=== PATIENT | female | born 1960 | race Two or more races ===

== ENCOUNTER 2022-02-16 11:05 | Inpatient (IN) | payer MEDICAID ==
[~2022-02-16] VITALS: Ht 154.9 cm; Wt 54.0 kg
[2022-02-16] MEDS ORDERED: HYDROcodone-ACET 5/325MG TAB PO ONE (13:00)
[2022-02-16 13:16] LABS: Albumin 3.9 g/dL (3.4-5.0); Magnesium 2.4 mg/dL (1.6-2.6)
[2022-02-16 13:21] LABS: BUN/Creatinine Ratio 16.8; Bilirubin, Total 0.5 mg/dL (0.2-1.0); Total Protein 7.6 g/dL (6.4-8.2)
[2022-02-16 13:29] LABS: Basophils # (auto) 0 10 ^3/uL (0-0.2); Basophils % (auto) 0.6 % (0.0-2.0); Eosinophils # (auto) 0.1 10 ^3/uL (0-0.8); Eosinophils % (auto) 1.5 % (0.0-7.0); Hematocrit 32.2 % (36.0-46.0); Hemoglobin 11.5 g/dL (12.2-16.2); Lymphocytes # (auto) 1.6 10 ^3/uL (0.4-5.4); Lymphocytes % (auto) 22.2 % (10.0-50.0); Mean Corpuscular Hemoglobin 29.5 pg (28.0-32.0); Mean Corpuscular Hgb Conc. 35.6 g/dL (32.0-36.0); Mean Corpuscular Volume 82.9 fL (80.0-100.0); Monocytes # (auto) 0.5 10 ^3/uL (0-1.3); Monocytes % (auto) 7.4 % (0.0-12.0); Neutrophils % (auto) 68.3 % (37.0-80.0); Red Blood Cells 3.89 10^6/uL (4.0-5.20); Red Cell Distribution Width 13.3 % (11.8-14.3); White Blood Cell 7.4 10^3/uL (4.4-10.8)
[2022-02-16 13:37] LABS: Calcium 14.1 mg/dL (8.5-10.1); Potassium 2.9 mmol/L (3.5-5.1)
[2022-02-16] MEDS ORDERED: POTASSIUM CHL 20 Meq TABLET PO ONE (13:45)
[2022-02-16] MEDS ORDERED: ONDANSETRON HCL 4 MG/2 ML VIAL IV PRN (20:00)
[2022-02-16] MEDS ORDERED: HYDROcodone-ACET 5/325MG TAB PO PRN (20:00)
[2022-02-16] MEDS ORDERED: DOCUSATE SOD 100 MG CAP PO PRN (20:00)
[2022-02-16] MEDS ORDERED: DEXTROSE (50%) 50ML SYRG IV PRN (23:00)
[2022-02-17] VITALS (7 sets, daily range): BP systolic 125–153; BP diastolic 57–74
[2022-02-17] MEDS: SODIUM CHLORIDE 0.9% 1,000 ML IV SCH ×3 (06:00→16:00)
[2022-02-17] MEDS: ACCU-CHEK COMFORT CURVE STRIP VI SCH ×4 (07:00→22:45)
[2022-02-17] MEDS: InsuLIN REG 1unit/0.01ml Soln (100units/ml) SC SCH ×4 (07:00→22:45)
[2022-02-17 07:43] LABS: INR 0.97 (0.9-1.15); Partial Thromboplastin Time 23.5 sec (24.6-33.4)
[2022-02-17 07:47] LABS: BUN/Creatinine Ratio 21.2; Calcium 12.7 mg/dL (8.5-10.1); Potassium 3.1 mmol/L (3.5-5.1)
[2022-02-17 08:45] LABS: Basophils # (auto) 0 10 ^3/uL (0-0.2); Basophils % (auto) 0.7 % (0.0-2.0); Eosinophils # (auto) 0.1 10 ^3/uL (0-0.8); Eosinophils % (auto) 2.2 % (0.0-7.0); Hematocrit 28.7 % (36.0-46.0); Hemoglobin 10.4 g/dL (12.2-16.2); Lymphocytes # (auto) 1.2 10 ^3/uL (0.4-5.4); Lymphocytes % (auto) 19.4 % (10.0-50.0); Mean Corpuscular Hemoglobin 29.8 pg (28.0-32.0); Mean Corpuscular Hgb Conc. 36.4 g/dL (32.0-36.0); Mean Corpuscular Volume 81.8 fL (80.0-100.0); Monocytes # (auto) 0.5 10 ^3/uL (0-1.3); Neutrophils # (auto) 4.5 10 ^3/uL (1.6-8.6); Neutrophils % (auto) 69.7 % (37.0-80.0); Nucleated Red Blood Cells % 0.2 %; Red Cell Distribution Width 13.4 % (11.8-14.3); White Blood Cell 6.4 10^3/uL (4.4-10.8)
[2022-02-17] MEDS ORDERED: DOCUSATE SOD 100 MG CAP PO ONE (12:30)
[2022-02-17] MEDS ORDERED: POTASSIUM CHL 20 Meq TABLET PO ONE (12:30)
[2022-02-17] MEDS ORDERED: DEXTROSE (50%) 50ML SYRG IV PRN (12:30)
[2022-02-17] MEDS ORDERED: InsuLIN REG 1unit/0.01ml Soln (100units/ml) SC SCH (22:00)
[2022-02-17] MEDS: DOCUSATE SOD 100 MG CAP PO SCH (22:45)
[2022-02-18] MEDS: SODIUM CHLORIDE 0.9% 1,000 ML IV SCH ×3 (02:00→21:48)
[2022-02-18 04:36] LABS: BUN/Creatinine Ratio 21.1; Calcium 12.1 mg/dL (8.5-10.1); Potassium 3.3 mmol/L (3.5-5.1)
[2022-02-18 05:00] VITALS: BP 129/68
[2022-02-18] MEDS: ACCU-CHEK COMFORT CURVE STRIP VI SCH ×4 (06:27→21:49)
[2022-02-18] MEDS: InsuLIN REG 1unit/0.01ml Soln (100units/ml) SC SCH ×4 (06:28→21:48)
[2022-02-18 08:25] LABS: Basophils # (auto) 0 10 ^3/uL (0-0.2); Basophils % (auto) 0.9 % (0.0-2.0); Eosinophils # (auto) 0.2 10 ^3/uL (0-0.8); Eosinophils % (auto) 3.4 % (0.0-7.0); Hematocrit 26.6 % (36.0-46.0); Hemoglobin 9.7 g/dL (12.2-16.2); Lymphocytes # (auto) 1.3 10 ^3/uL (0.4-5.4); Lymphocytes % (auto) 25.4 % (10.0-50.0); Mean Corpuscular Hemoglobin 29.7 pg (28.0-32.0); Mean Corpuscular Hgb Conc. 36.3 g/dL (32.0-36.0); Mean Corpuscular Volume 81.9 fL (80.0-100.0); Monocytes # (auto) 0.4 10 ^3/uL (0-1.3); Monocytes % (auto) 8.4 % (0.0-12.0); Neutrophils # (auto) 3.2 10 ^3/uL (1.6-8.6); Neutrophils % (auto) 61.9 % (37.0-80.0); Red Blood Cells 3.25 10^6/uL (4.0-5.20); Red Cell Distribution Width 13.4 % (11.8-14.3); White Blood Cell 5.1 10^3/uL (4.4-10.8)
[2022-02-18 09:00] VITALS: BP 128/63
[2022-02-18] MEDS: DOCUSATE SOD 100 MG CAP PO SCH ×2 (10:19→21:48)
[2022-02-18] MEDS ORDERED: POTASSIUM CHL 20 Meq TABLET PO ONE (11:15)
[2022-02-18] MEDS: LACTULOSE 20Gm/30ML SOLN PO SCH ×2 (12:12→18:12)
[2022-02-18 13:00] VITALS: BP 145/61
[2022-02-18 16:28] VITALS: BP 139/68
[2022-02-18 19:08] LABS: Urine Bacteria NONE SEEN /hpf (None Seen); Urine Blood Negative /uL (Negative); Urine Hyaline Cast FEW /lpf (0 - 2); Urine Specific Gravity 1.008 (1.001-1.035); Urine WBC 10 /hpf (0 - 5)
[2022-02-18 22:00] VITALS: BP 123/51
[2022-02-19 05:00] VITALS: BP 110/53
[2022-02-19] MEDS: LACTULOSE 20Gm/30ML SOLN PO SCH ×5 (06:13→23:29)
[2022-02-19] MEDS: InsuLIN REG 1unit/0.01ml Soln (100units/ml) SC SCH ×4 (06:13→21:11)
[2022-02-19] MEDS: ACCU-CHEK COMFORT CURVE STRIP VI SCH ×4 (06:14→21:09)
[2022-02-19 06:35] LABS: Potassium 3.6 mmol/L (3.5-5.1)
[2022-02-19 06:47] LABS: Calcium 11.5 mg/dL (8.5-10.1)
[2022-02-19] MEDS: SODIUM CHLORIDE 0.9% 1,000 ML IV SCH ×2 (08:00→18:40)
[2022-02-19 09:00] VITALS: BP 144/65
[2022-02-19] MEDS: DOCUSATE SOD 100 MG CAP PO SCH ×2 (09:36→21:09)
[2022-02-19 13:00] VITALS: BP 154/92
[2022-02-19 17:00] VITALS: BP 146/65
[2022-02-19 22:00] VITALS: BP 136/39
[2022-02-20] MEDS: SODIUM CHLORIDE 0.9% 1,000 ML IV SCH ×3 (04:00→16:05)
[2022-02-20 05:00] VITALS: BP 141/66
[2022-02-20 05:37] LABS: Basophils # (auto) 0 10 ^3/uL (0-0.2); Basophils % (auto) 0.9 % (0.0-2.0); Eosinophils # (auto) 0.2 10 ^3/uL (0-0.8); Eosinophils % (auto) 4.1 % (0.0-7.0); Monocytes # (auto) 0.3 10 ^3/uL (0-1.3); Neutrophils # (auto) 3.2 10 ^3/uL (1.6-8.6)
[2022-02-20 05:40] LABS: Hematocrit 24.8 % (36.0-46.0); Hemoglobin 9.3 g/dL (12.2-16.2); Lymphocytes # (auto) 1.2 10 ^3/uL (0.4-5.4); Lymphocytes % (auto) 23.9 % (10.0-50.0); Mean Corpuscular Hemoglobin 30.7 pg (28.0-32.0); Mean Corpuscular Volume 81.9 fL (80.0-100.0); Monocytes % (auto) 6.3 % (0.0-12.0); Neutrophils % (auto) 64.8 % (37.0-80.0); Nucleated Red Blood Cells % 0.1 %; Red Blood Cells 3.03 10^6/uL (4.0-5.20); Red Cell Distribution Width 13.8 % (11.8-14.3)
[2022-02-20 05:44] LABS: Mean Corpuscular Hgb Conc. 37.5 g/dL (32.0-36.0)
[2022-02-20 05:48] LABS: BUN/Creatinine Ratio 8.7; Calcium 11.5 mg/dL (8.5-10.1)
[2022-02-20] MEDS: ACCU-CHEK COMFORT CURVE STRIP VI SCH ×4 (06:49→21:25)
[2022-02-20] MEDS: LACTULOSE 20Gm/30ML SOLN PO SCH ×3 (06:49→18:14)
[2022-02-20] MEDS: InsuLIN REG 1unit/0.01ml Soln (100units/ml) SC SCH ×4 (06:50→21:25)
[2022-02-20 08:19] VITALS: BP 151/78
[2022-02-20] MEDS: DOCUSATE SOD 100 MG CAP PO SCH ×2 (09:57→21:25)
[2022-02-20] MEDS ORDERED: POTASSIUM CHL 20MEQ/100ML 100 ML IV ONE ×3 (11:00→14:15)
[2022-02-20 12:24] VITALS: BP 130/57
[2022-02-20 16:58] VITALS: BP 129/78
[2022-02-20 22:00] VITALS: BP 147/61
[2022-02-21] MEDS: LACTULOSE 20Gm/30ML SOLN PO SCH ×5 (00:02→23:26)
[2022-02-21 05:00] VITALS: BP 115/57
[2022-02-21] MEDS: ACCU-CHEK COMFORT CURVE STRIP VI SCH ×4 (06:08→23:28)
[2022-02-21] MEDS: InsuLIN REG 1unit/0.01ml Soln (100units/ml) SC SCH ×4 (06:08→23:29)
[2022-02-21 06:09] LABS: BUN/Creatinine Ratio 5.8; Calcium 12.2 mg/dL (8.5-10.1); Potassium 3.3 mmol/L (3.5-5.1)
[2022-02-21 07:19] LABS: Basophils # (auto) 0 10 ^3/uL (0-0.2); Eosinophils # (auto) 0.2 10 ^3/uL (0-0.8); Eosinophils % (auto) 4.3 % (0.0-7.0); Hematocrit 25.4 % (36.0-46.0); Hemoglobin 9.3 g/dL (12.2-16.2); Lymphocytes # (auto) 1.2 10 ^3/uL (0.4-5.4); Mean Corpuscular Hemoglobin 30.1 pg (28.0-32.0); Mean Corpuscular Hgb Conc. 36.4 g/dL (32.0-36.0); Mean Corpuscular Volume 82.5 fL (80.0-100.0); Monocytes # (auto) 0.3 10 ^3/uL (0-1.3); Monocytes % (auto) 6.8 % (0.0-12.0); Neutrophils # (auto) 2.8 10 ^3/uL (1.6-8.6); Neutrophils % (auto) 60.9 % (37.0-80.0); Nucleated Red Blood Cells % 0.2 %; Red Blood Cells 3.09 10^6/uL (4.0-5.20); White Blood Cell 4.6 10^3/uL (4.4-10.8)
[2022-02-21 09:47] VITALS: BP 119/54
[2022-02-21] MEDS: DOCUSATE SOD 100 MG CAP PO SCH ×2 (12:33→23:26)
[2022-02-21] MEDS ORDERED: POTASSIUM CHL 20 Meq TABLET PO ONE (12:45)
[2022-02-21 13:00] VITALS: BP 134/61
[2022-02-21 17:00] VITALS: BP 134/59
[2022-02-21 22:00] VITALS: BP_SYST 115; BP_SYST 135; BP_DIAS 57; BP_DIAS 59
[2022-02-22 05:00] VITALS: BP 132/50
[2022-02-22] MEDS: LACTULOSE 20Gm/30ML SOLN PO SCH ×4 (05:52→23:10)
[2022-02-22] MEDS: InsuLIN REG 1unit/0.01ml Soln (100units/ml) SC SCH ×4 (06:37→22:00)
[2022-02-22] MEDS: ACCU-CHEK COMFORT CURVE STRIP VI SCH ×4 (06:38→23:18)
[2022-02-22 09:00] VITALS: BP_SYST 131; BP_SYST 148; BP_DIAS 66; BP_DIAS 69
[2022-02-22] MEDS: DOCUSATE SOD 100 MG CAP PO SCH ×2 (11:45→23:10)
[2022-02-22 13:00] VITALS: BP 131/66
[2022-02-22] MEDS ORDERED: ZOLEDRONIC ACID 4 MG in SODIUM CHL 0.9% 100 ML IV ONE (14:00)
[2022-02-22 17:00] VITALS: BP 147/56
[2022-02-22 22:00] VITALS: BP 143/69
[2022-02-23 05:00] VITALS: BP 147/71
[2022-02-23] MEDS: LACTULOSE 20Gm/30ML SOLN PO SCH ×3 (06:02→18:00)
[2022-02-23] MEDS: InsuLIN REG 1unit/0.01ml Soln (100units/ml) SC SCH ×4 (06:04→21:17)
[2022-02-23] MEDS: ACCU-CHEK COMFORT CURVE STRIP VI SCH ×4 (06:05→21:14)
[2022-02-23 06:16] LABS: BUN/Creatinine Ratio 7.4; Calcium 12.3 mg/dL (8.5-10.1)
[2022-02-23 08:00] VITALS: BP 145/72
[2022-02-23 09:00] VITALS: BP 145/72
[2022-02-23] MEDS: DOCUSATE SOD 100 MG CAP PO SCH ×2 (09:55→21:14)
[2022-02-23 13:00] VITALS: BP 135/72
[2022-02-23 16:41] VITALS: BP 112/56
[2022-02-23 21:38] VITALS: BP 108/87
[2022-02-24] MEDS: LACTULOSE 20Gm/30ML SOLN PO SCH ×3 (00:32→12:00)
[2022-02-24 05:08] VITALS: BP 101/52
[2022-02-24] MEDS: ACCU-CHEK COMFORT CURVE STRIP VI SCH ×2 (06:44→12:29)
[2022-02-24] MEDS: InsuLIN REG 1unit/0.01ml Soln (100units/ml) SC SCH ×2 (06:44→12:29)
[2022-02-24 09:04] VITALS: BP 103/36
[2022-02-24] MEDS: DOCUSATE SOD 100 MG CAP PO SCH (11:13)
[2022-02-24 13:00] VITALS: BP 112/55
== END 2022-02-24 16:58 | disposition home or self-care (01) | DRG 465 ==
LOC: ER 11:05 → OVERFLOW 19:50 → WEST WING 02-17 02:42
PROVIDERS: ADMIT Nurse Practitioner Family; ATTEND Internal Medicine
DX: N20.0 Calculus of kidney (principal); N17.0 Acute kidney failure with tubular necrosis; E11.22 Type 2 diabetes mellitus with diabetic chronic kidney disease; Z20.822 Contact with and (suspected) exposure to COVID-19; K59.00 Constipation, unspecified; E87.6 Hypokalemia; I12.9 Hypertensive chronic kidney disease with stage 1 through stage 4 chronic kidney disease, or unspecified chronic kidney disease; N18.9 Chronic kidney disease, unspecified
CPT/HCPCS: 36415; 71045; 74176; 76536; 78070; 78306; 80048; 80053; 81001; 82150; 82962; 83036; 83735; 83970; 84132; 84443; 85025; 85610; 85730; 87086; 93005; 96360; G0378; J1815; J3480; J3489